=== PATIENT | male | born 1960 | race Caucasian/White ===

== ENCOUNTER 2018-10-11 02:16 | Inpatient (IN) | payer SELFPAY ==
[~2018-10-11] VITALS: Ht 175.3 cm; Wt 88.5 kg
[2018-10-11] MEDS ORDERED: IV NORMAL SALINE 500 ML BAG IV ONE (02:45)
[2018-10-11] MEDS ORDERED: NITROGLYCERIN 0.4 MG/TAB BOTTLE SL ONE ×2 (02:45→02:49)
[2018-10-11 03:12] LABS: BASOPHILS # (AUTO) 0.1 K/uL (0.0-8.0); BASOPHILS % (AUTO) 0.9 % (0.0-2.0); EOSINOPHILS # (AUTO) 0.3 K/uL (0.0-0.7); EOSINOPHILS % (AUTO) 3.1 % (0.0-7.0); HEMATOCRIT 46.2 % (36.7-47.1); HEMOGLOBIN 15.8 g/dL (12.5-16.3); LYMPHOCYTES # (AUTO) 1.6 K/uL (20.0-40.0); LYMPHOCYTES % (AUTO) 14.7 % (20.5-51.5); MEAN CORPUSCULAR HEMOGLOBIN 28.1 uug (23.8-33.4); MEAN CORPUSCULAR HGB CONC 34 g/dL (32.5-36.3); MEAN CORPUSCULAR VOLUME 82.1 fL (73.0-96.2); MONOCYTES # (AUTO) 0.5 K/uL (2.0-10.0); MONOCYTES % (AUTO) 4.9 % (0.0-11.0); NEUTROPHILS # (AUTO) 8.5 K/uL (1.8-8.9); NEUTROPHILS % (AUTO) 76.4 % (38.5-71.5); PLATELET COUNT (AUTO) 271 K/uL (152-348); RED BLOOD CELL COUNT(AUTO) 5.63 MIL/uL (4.06-5.63); WHITE BLOOD COUNT (AUTO) 11.1 K/uL (3.6-10.2)
[2018-10-11 03:29] LABS: CREATININE 1.2 mg/dL (0.6-1.3); POTASSIUM 4.2 mmol/L (3.5-5.1)
[2018-10-11 03:41] LABS: BILIRUBIN,DIRECT 0.1 mg/dL (0.0-0.2); BILIRUBIN,TOTAL 0.3 mg/dL (0.2-1.0); TOTAL PROTEIN, SERUM 7.6 g/dL (6.4-8.2)
[2018-10-11] MEDS ORDERED: MAG HYDROX/AL HYDROX/SIMETH 30 ML LIQUID UDC PO PRN (05:15)
--- NOTE | 2018-10-11 05:21 | NUR ---
RECEIVED PATIENT VIA W/C FROM ER WITH AT BEDSIDE. PATIENT IS A/O X4. DENIES ANY CHEST PAIN OR DISCOMFORT AT THIS TIME. PLACED ON TELE ORDERED, SR. VSS. CALL LIGHT IN REACH. ALL NEEDS ATTENDED. WILL CONTINUE TO MONITOR AND ASSESS.
[2018-10-11 05:35] VITALS: BP 149/98
--- NOTE | 2018-10-11 07:30 | NUR ---
RECEIVED PATIENT AT CHANGE OF SHIFT REPORT. PATIENT IS ALERT AND ORIENTED X4. IS AT BEDSIDE. CALL LIGHT WITHIN REACH AND BED IN LOW POSITION. PATIENT REPORTED PAIN 7/10, MANAGED WITH MEDICATION. WILL CONTINUE TO MONITOR AND ASSESS.
[2018-10-11] MEDS: MORPHINE SULFATE 4 MG/1 ML DISP.SYRIN IV PRN ×2 (07:33→08:48)
[2018-10-11] MEDS: CARVEDILOL 6.25 MG TABLET PO SCH ×2 (08:49→17:44)
[2018-10-11] MEDS: ASPIRIN 81 MG TAB.CHEW PO SCH (08:49)
[2018-10-11] MEDS: ACETAMINOPHEN 325 MG TABLET PO PRN ×3 (09:51→22:09)
[2018-10-11 11:14] VITALS: BP 130/81
[2018-10-11 15:35] VITALS: BP 132/88
[2018-10-11] MEDS ORDERED: IV NS 1000 ML 1,000 ML IV ONE (17:15)
[2018-10-11] MEDS: COLCHICINE 0.6 MG TABLET PO SCH (17:44)
--- NOTE | 2018-10-11 19:03 | NUR ---
PATIENT IS ALERT AND ORIENTED X4, ALTHOUGH HE IS A BIT SLEEPY. AT BEDSIDE. PATIENT HAS BEEN KEPT COMFORTABLE. BED IN LOW POSITION, CALL LIGHT WITHIN REACH.
--- NOTE | 2018-10-11 20:00 | NUR ---
RECEIVED PATIENT AWAKE IN BED WITH AT BEDSIDE. PATIENT IS A/O X4. DENIES ANY CHEST PAIN AT THIS TIME. ON TELE SR. NO RESP. DISTRESS NOTED. CALL LIGHT IN REACH. ALL NEEDS ATTENDED, WILL CONTINUE TO MONITOR.
[2018-10-11] MEDS: ATORVASTATIN 40 MG TABLET PO SCH (20:34)
[2018-10-11 20:38] VITALS: BP 145/95
--- NOTE | 2018-10-12 | NUR ---
PATIENT NPO ORDERED.
[2018-10-12 00:20] VITALS: BP 142/94
[2018-10-12 04:00] VITALS: BP 133/82
--- NOTE | 2018-10-12 05:56 | NUR ---
PATIENT ASLEEP IN BED. AT BEDSIDE. PATIENT SLEPT WELL. VSS. ON TELE SR. ALL NEEDS ATTENDED. CALL LIGHT IN REACH.
[2018-10-12] MEDS ORDERED: IV NORMAL SALINE 250 ML IV ONE (07:06)
[2018-10-12] MEDS ORDERED: SWABABLE VALVE TRANSFER SET EA MC ONE (07:06)
[2018-10-12] MEDS ORDERED: IOHEXOL 350 100 ML INFUS..BTL ONE (07:06)
[2018-10-12 07:19] LABS: BASOPHILS # (AUTO) 0.1 K/uL (0.0-8.0); BASOPHILS % (AUTO) 0.7 % (0.0-2.0); EOSINOPHILS # (AUTO) 0.2 K/uL (0.0-0.7); EOSINOPHILS % (AUTO) 2.5 % (0.0-7.0); HEMATOCRIT 45.7 % (36.7-47.1); HEMOGLOBIN 15.4 g/dL (12.5-16.3); LYMPHOCYTES # (AUTO) 1.6 K/uL (20.0-40.0); LYMPHOCYTES % (AUTO) 21.3 % (20.5-51.5); MEAN CORPUSCULAR HEMOGLOBIN 28.3 uug (23.8-33.4); MEAN CORPUSCULAR HGB CONC 34 g/dL (32.5-36.3); MEAN CORPUSCULAR VOLUME 84.1 fL (73.0-96.2); MONOCYTES # (AUTO) 0.6 K/uL (2.0-10.0); MONOCYTES % (AUTO) 8.3 % (0.0-11.0); NEUTROPHILS # (AUTO) 5.1 K/uL (1.8-8.9); NEUTROPHILS % (AUTO) 67.2 % (38.5-71.5); PLATELET COUNT (AUTO) 226 K/uL (152-348); RED BLOOD CELL COUNT(AUTO) 5.44 MIL/uL (4.06-5.63); WHITE BLOOD COUNT (AUTO) 7.6 K/uL (3.6-10.2)
--- NOTE | 2018-10-12 07:30 | NUR ---
RECEIVED PATIENT, PATIENT IS AWAKE ALERT AND ORIENTED X4. NPO STATUS, PENDING PROCEDURE. HE DENIES ANY CHEST PAIN AT THE TIME, WILL CONTINUE TO ASSESS AND MONITOR. IS AT BEDSIDE. BED IS IN LOW POSITION, LOCKED WITH CALL LIGHT IN REACH.
[2018-10-12 07:51] LABS: CREATININE 1.1 mg/dL (0.6-1.3); MAGNESIUM 1.9 mg/dL (1.8-2.4); PHOSPHOROUS 2.5 mg/dL (2.5-4.9)
[2018-10-12] MEDS: ASPIRIN 81 MG TAB.CHEW PO SCH (08:52)
[2018-10-12] MEDS: COLCHICINE 0.6 MG TABLET PO SCH (08:52)
[2018-10-12] MEDS: CARVEDILOL 6.25 MG TABLET PO SCH ×2 (08:52→18:08)
[2018-10-12 11:20] VITALS: BP 131/86
--- NOTE | 2018-10-12 12:20 | NUR ---
REPORT GIVEN TO DONNA, PATIENT IS BEING TRANSFERRED TO [facility] FOR CT ANGIOGRAM OF THE CORONARY ARTERIES. PATIENT IS AMBULATORY, ALERT AND ORIENTED, VITAL SIGNS STABLE. WILL ACCOMPANY PATIENT.
--- NOTE | 2018-10-12 16:40 | NUR ---
RECEIVED PATIENT BACK POST-PROCEDURE AT [facility]. PATIENT IS AWAKE, ALERT AND ORIENTED X4. VSS. IS AT BEDSIDE. TELE MONITOR CONNECTED, SINUS RHYTHM. WILL CONTINUE TO ASSESS AND MONITOR.
[2018-10-12 16:49] VITALS: BP 131/85
[2018-10-12 16:57] VITALS: BP 131/85
--- NOTE | 2018-10-12 18:35 | NUR ---
PATIENT IS ALERT, AWAKE AND ORIENTED. NO SIGNS OF DISTRESS NOTED. PATIENT IS SITTING AT BEDSIDE. IS PRESENT IN THE ROOM. VITAL SIGNS ARE STABLE. PATIENT IS ON TELE MONITOR.
--- NOTE | 2018-10-12 18:59 | NUR ---
CONFERENCE WITH FAMILY, PHYSICIAN AND CASE MANAGEMENT ABOUT TRANSFER. SEE PHYSICIAN'S NOTES.
--- NOTE | 2018-10-12 20:01 | NUR ---
Pt observed to be sitting up in bed AAO x 4. No s/s of acute distress noted. Pt aware of plan of care and possible transfer. Safe environment implemented. Call light within reach. Addendum: 10/12/18 at 2102 by TIMA DEVI RN Tele noted to be sinus rhythm
[2018-10-12 20:02] VITALS: BP 124/84
[2018-10-12] MEDS: ATORVASTATIN 40 MG TABLET PO SCH (20:10)
--- NOTE | 2018-10-12 21:29 | NUR ---
Received phone call from Duncan HDEZ regarding patient's transfer. Per Duncan, there is an accepting knowledge manager at [facility] - Dr. Joe Combs. Pt made aware, awaiting bed to open up at this time.
[2018-10-12] MEDS: NITROGLYCERIN 0.4 MG/TAB BOTTLE SL PRN (22:35)
[2018-10-12] MEDS: ACETAMINOPHEN 325 MG TABLET PO PRN (22:42)
--- NOTE | 2018-10-12 22:45 | NUR ---
Pt stated that he had warm flushed feeling and discomfort on left shoulder. Nitro SL administered x 1 and pt stated relief after. Tylenol administered for LEÓN. call or contact centre operator DNP made aware.
[2018-10-13 00:47] VITALS: BP 112/72
[2018-10-13 04:04] VITALS: BP 130/85
--- NOTE | 2018-10-13 05:45 | NUR ---
Pt slept comfortably throughout the night, no acute distress noted at this time. Pt aware of pending transfer to [facility] per Duncan HDEZ. Interfacility transfer consent form signed and placed in chart. Safe environment implemented.
--- NOTE | 2018-10-13 07:44 | NUR ---
Received patient awake in bed, not in any form of distress. Alert and oriented x 4. On room air, tolerated. With IV access at right antecubital area to saline lack, patent and intact. Noted patient able to ambulate. Noted patient for possible transfer to [facility], will follow up with case assistant. No complaints of chest pain at the moment, will continue to monitor. Bed in low position and side rails up for safety.
--- NOTE | 2018-10-13 08:25 | NUR ---
Patient complaining of pain at right shoulder radiating to left shoulder, similar to area with pain last night but pain a little worse per patient, last night was a 2/10 and this morning a 3/10. Nitroglycerin SL given and Narciso Song NP was notified as wel..
[2018-10-13] MEDS: NITROGLYCERIN 0.4 MG/TAB BOTTLE SL PRN (08:31)
[2018-10-13] MEDS ORDERED: ASPIRIN 81 MG TAB.CHEW PO SCH (09:00)
[2018-10-13] MEDS: CARVEDILOL 6.25 MG TABLET PO SCH (09:01)
[2018-10-13] MEDS: ASPIRIN 325 MG TABLET PO SCH (09:01)
[2018-10-13] MEDS: COLCHICINE 0.6 MG TABLET PO SCH (09:01)
[2018-10-13 09:35] LABS: CREATININE 1.2 mg/dL (0.6-1.3); PHOSPHOROUS 2.6 mg/dL (2.5-4.9)
[2018-10-13] MEDS ORDERED: HEPARIN SODIUM,PORCINE 5,000 UNITS/ML VIAL IV ONE (10:00)
[2018-10-13] MEDS ORDERED: HEPARIN SODIUM,PORCINE 5,000 UNITS/ML VIAL IV PRN (10:00)
--- NOTE | 2018-10-13 10:00 | NUR ---
Noted order to start heparin drip, blood draw done awaiting results for PT, INR, APTT.
--- NOTE | 2018-10-13 10:14 | NUR ---
Heparin 6300units IV bolus given at right antecubital vein IV access which was checked for patency.
[2018-10-13] MEDS: HEPARIN/D5W DRIP 500 ML IV PRN (10:20)
--- NOTE | 2018-10-13 10:20 | NUR ---
Started heparin drip at 1200units/hour which is 24ml/hr. Will continue to monitor patient.
[2018-10-13 10:37] LABS: BASOPHILS # (AUTO) 0.1 K/uL (0.0-8.0); EOSINOPHILS # (AUTO) 0.4 K/uL (0.0-0.7); EOSINOPHILS % (AUTO) 4.7 % (0.0-7.0); HEMATOCRIT 44.1 % (36.7-47.1); HEMOGLOBIN 15.2 g/dL (12.5-16.3); LYMPHOCYTES # (AUTO) 1.8 K/uL (20.0-40.0); LYMPHOCYTES % (AUTO) 21.1 % (20.5-51.5); MEAN CORPUSCULAR HEMOGLOBIN 28.7 uug (23.8-33.4); MEAN CORPUSCULAR HGB CONC 35 g/dL (32.5-36.3); MEAN CORPUSCULAR VOLUME 83.3 fL (73.0-96.2); MONOCYTES # (AUTO) 0.5 K/uL (2.0-10.0); MONOCYTES % (AUTO) 5.9 % (0.0-11.0); NEUTROPHILS # (AUTO) 5.6 K/uL (1.8-8.9); NEUTROPHILS % (AUTO) 67.3 % (38.5-71.5); PLATELET COUNT (AUTO) 276 K/uL (152-348); WHITE BLOOD COUNT (AUTO) 8.4 K/uL (3.6-10.2)
[2018-10-13 11:25] VITALS: BP 130/79
[2018-10-13] MEDS: ISOSORBIDE MONONITRATE 60 MG TAB.SR.24H PO SCH (11:39)
[2018-10-13 15:40] VITALS: BP 107/61
--- NOTE | 2018-10-13 16:09 | NUR ---
Received nutrition consult on cardiac diet. PRANAV provided oral and materials on healthy heart diet and tip on reading label for heart healthy diet. Patient and family were very receptive to the education. Addendum: 10/13/18 at [address] Amended: Links added.
--- NOTE | 2018-10-13 16:30 | NUR ---
Latest PTT is 35.9 seconds, per hepatin protocol heparin drip rate should be increased by 200units/hour, order faxed to pharmacy.
--- NOTE | 2018-10-13 17:00 | NUR ---
Per pharmacist patient is on the maximum rate for the heparin drip which is 1200units/hour, pharmacist will verify with MD on how to titrate the heparin drip. For now pharmacist said to maintain drip at 1200units/hour.
--- NOTE | 2018-10-13 18:00 | NUR ---
Per MD maintain heparin drip at 1200 units/hr which is 24ml/hr. Repeat PTT ordered for 2100 since drip was maintained same rate at 1700. Noted patient for transfer to [facility], awaiting for bed availability.
--- NOTE | 2018-10-13 19:01 | NUR ---
Patient awake in bed, not in any form of distress. On room air, tolerated. With IV access at right antecubital area to heparin drip, infusing well. Noted patient able to ambulate. No recurrence of chest or shoulder pain. Bed in low position and side rails up for safety.
--- NOTE | 2018-10-13 19:20 | NUR ---
RECEIVED PT AWAKE, ALERT, ORIENTEDX4. FAMILY AT BEDSIDE. PT SHOWS NO SIGNS OF DISTRESS. IV INTACT AND HEPARIN DRIP INFUSING. SAFETY AND COMFORT PROVIDED. WILL CONTINUE TO MONITOR.
[2018-10-13 20:00] VITALS: BP 106/65
[2018-10-13] MEDS: METOPROLOL TARTRATE 50 MG TABLET PO SCH (20:17)
[2018-10-13] MEDS: ACETAMINOPHEN 325 MG TABLET PO PRN (20:22)
[2018-10-13] MEDS ORDERED: ATORVASTATIN 40 MG TABLET PO SCH (21:00)
[2018-10-14] VITALS: BP 112/70
[2018-10-14 06:33] VITALS: BP 107/60
--- NOTE | 2018-10-14 06:45 | NUR ---
PT SLEPT THROUGHOUT THE SHIFT. PT SHOWS NO SIGNS OF DISTRESS. IV INTACT. SAFETY AND COMFORT PROVIDED. WILL ENDORSE ACCORDINGLY TO INCOMING NURSE FOR CONTINUITY OF CARE.
[2018-10-14 06:56] LABS: BASOPHILS % (AUTO) 0.5 % (0.0-2.0); EOSINOPHILS # (AUTO) 0.2 K/uL (0.0-0.7); EOSINOPHILS % (AUTO) 3.1 % (0.0-7.0); HEMATOCRIT 43.6 % (36.7-47.1); LYMPHOCYTES % (AUTO) 16.1 % (20.5-51.5); MEAN CORPUSCULAR HEMOGLOBIN 28.4 uug (23.8-33.4); MEAN CORPUSCULAR HGB CONC 34 g/dL (32.5-36.3); MEAN CORPUSCULAR VOLUME 82.6 fL (73.0-96.2); MONOCYTES # (AUTO) 0.3 K/uL (2.0-10.0); MONOCYTES % (AUTO) 5.8 % (0.0-11.0); NEUTROPHILS # (AUTO) 4.4 K/uL (1.8-8.9); NEUTROPHILS % (AUTO) 74.5 % (38.5-71.5); PLATELET COUNT (AUTO) 247 K/uL (152-348); RED BLOOD CELL COUNT(AUTO) 5.28 MIL/uL (4.06-5.63)
[2018-10-14 06:57] LABS: CREATININE 1.2 mg/dL (0.6-1.3); POTASSIUM 3.7 mmol/L (3.5-5.1)
[2018-10-14 07:10] LABS: WHITE BLOOD COUNT (AUTO) 5.9 K/uL (3.6-10.2)
--- NOTE | 2018-10-14 07:38 | NUR ---
aPTT 32.6, Duncan DNP notified. Duncan is aware that order is needed, no longer following protocol.
[2018-10-14] MEDS: HEPARIN/D5W DRIP 500 ML IV PRN (07:48)
[2018-10-14] MEDS: ASPIRIN 325 MG TABLET PO SCH (08:00)
[2018-10-14] MEDS: COLCHICINE 0.6 MG TABLET PO SCH (08:00)
[2018-10-14] MEDS: ISOSORBIDE MONONITRATE 60 MG TAB.SR.24H PO SCH (08:01)
[2018-10-14] MEDS: ACETAMINOPHEN 325 MG TABLET PO PRN ×2 (08:01→15:52)
[2018-10-14] MEDS: METOPROLOL TARTRATE 50 MG TABLET PO SCH (08:01)
--- NOTE | 2018-10-14 09:55 | NUR ---
Order received by Duncan HDEZ to increase heparin drip to 1300units/ hr. Pt shows no signs of distress at this time. continue to monitor pt.
[2018-10-14 11:17] VITALS: BP 102/58
--- NOTE | 2018-10-14 13:00 | NUR ---
LEMUEL BATISTA MADE AWARE OF PT'S aPTT 32.3. ORDER TO KEEP RATE AT 1300 UNITS/ HR AND STATES TO NOTIFY DR. ALVARES. CONTINUE TO MONITOR PT.
[2018-10-14] MEDS ORDERED: HEPARIN SODIUM,PORCINE 5,000 UNITS/ML VIAL IV ONE (14:30)
[2018-10-14 15:30] VITALS: BP 121/60
[2018-10-14] MEDS ORDERED: Colchicine PO (16:39)
[2018-10-14] MEDS ORDERED: METO50TA16 PO (16:39)
[2018-10-14] MEDS ORDERED: ASPI-612 PO (16:39)
[2018-10-14] MEDS ORDERED: ATOR40TA PO (16:39)
[2018-10-14] MEDS ORDERED: Nitroglycerin Sl SL (16:39)
[2018-10-14] MEDS ORDERED: Isosorbide Mononitrate PO (16:39)
--- NOTE | 2018-10-14 17:12 | NUR ---
11:55 Alexandra from Finances [ ] confirmed that a note was sent to the Transfer Center stating financial clearance. 12:34 CARLEE Purcell had been in contact with [facility] and is looking for an In Flight Technician 12:47 Bridgette from [facility] Transfer Center [ ] stated that we now have to deal with Patient Placement for an available bed. 12:48 Martiza from [facility] Patient Placement [ ] stated that they currently do not have a bed yet and it depends when they will have a discharge. Reminded her that they can send the patient back to [facility] and that the Transfer Back Agreement was faxed to the Transfer Center yesterday. She requested for the patient's Prelimenary Discharge Summary be faxed to her [[phone]]. Asked if they can schedule the patient for a heart cath today but she stated that all the schedules had already been made for today but she will try to get him scheduled as soon as possible. 13:[address] Magdaleno Castellon [ ] per 's request because she spoke to her friend who is an MD at [facility] but unfortunately in [place] this time and she recommended to call Dr. Castellon if the patient run into any trouble being discharged. Dr. Castellon stated that he will try his best and see what he can do to push the transfer ANDREAS. 13:12 CARLEE Purcell confirmed that they have an Inteventional Almond Sorter, Hospitalist, a Private room and confirmed 3-day stay at [facility]. Spoke to the patient and his and they agreed to go to [facility]. She will be going back to [facility] to get the cashier parking lot's check back. 13:20 Spoke to Georgette from [facility] Financial Services and she confirmed that they currently do not have a bed available. 13:46 The patient's daughter requested for this mercantile reporter to call Alex from Dr. Bakari Madison's [ ] office. Updated Alex on the patient's condition and he was very apologetic because he thought that the patient was getting discharged from [facility] and Dr. Madison is out of town until Wednesday. Informed the patient and his daughter. 14:56 CARLEE Purcell spoke to the patient and his daughter in the room and explained the transfer, finances and the people involved in the transfer. They were both in agreement with the plan. 15:03 Maritza from [facility] Patient Placement called this mercantile reporter in an angry tone, very accusatory and stated that this mercantile reporter told the patient's that they will not get a bed at [facility] for 2 more days. Placed her on speaker phone with the patient's daughter in the room and informed her that I did not tell the they will not have beds but they were the ones who stated that they will take the patient once they paid in full. Informed her of all the contact people I spoke to the last 3 days. She asked if the family will confirm to cancel the transfer and it was cancelled. 15:18 The patient's daughter and confirmed that they got the check back from [facility] and that they truly want to proceed with the [facility]. 15:22 CARLEE Binh confirmed that the patient will be going to Room# 3114 and arranged the ambulance pharmacy picking tech for 16:15. The RN needs to call [facility] [ ] for the report. Informed the patient's RN, Salena, and asked Janee, the Audiovisual Tech to copy the patient's chart and get the complete CD. 15:52 Narciso from [facility] called and stated that they are running late and that the crew will not make it at 16:15. He will call when they are sure of the ETA 16:40 Narciso called back and stated that the pharmacy picking tech time will be 17:30. Updated the patient, his family, his RN and the special education kindergarten teacher, Amrik.
--- NOTE | 2018-10-14 17:45 | NUR ---
Pt transferred via ambulance to [facility]. Pt will be under the care of Dr. Cindy Sutton and pigment pumper Dr. Zackery Coelho. Pt's room number at [facility] is Room# 3114. Pt left with exit care packet, all belongs and valuables. Pt IV was intact, transfer sheet completed. report was given to TARYN Chua.
== END 2018-10-14 17:45 | disposition short-term general hospital (02) | DRG 282 ==
LOC: ER 02:17 → TELE 04:54
PROVIDERS: ADMIT Internal Medicine; ATTEND Hospitalist
PROC: B2211ZZ Computerized Tomography (CT Scan) of Multiple Coronary Arteries using Low Osmolar Contrast (ICD-10-PCS; principal; 2018-10-12)
DX: I21.4 Non-ST elevation (NSTEMI) myocardial infarction (principal); I25.118 Atherosclerotic heart disease of native coronary artery with other forms of angina pectoris; I25.83 Coronary atherosclerosis due to lipid rich plaque; K21.9 Gastro-esophageal reflux disease without esophagitis; E78.5 Hyperlipidemia, unspecified; I10 Essential (primary) hypertension; I25.82 Chronic total occlusion of coronary artery
CPT/HCPCS: 36415; 70030-TC; 71045; 83735; 84100; 85025; 85610; 85730; 93005; 93307; A4663; G0378; J1644; J2270; J7030; J7040; J7050; Q9967